=== PATIENT | male | born 1980 | race Caucasian/White ===

== ENCOUNTER 2019-08-29 00:36 | Inpatient (IN) | payer MEDICAID, OTHER ==
--- NOTE | 2019-08-29 01:03 | ED ---
Psych HPI - General Chief Complaint: Psychiatric Symptoms Stated Complaint: Mental Health Time Seen by Provider: 08/29/19 00:50 Source: police, RN notes reviewed, old records reviewed Mode of arrival: ambulatory (PD) Limitations: no limitations - History of Present Illness Initial Comments: This is a 39-year-old male presents today for evaluation, patient's brought in by PD for evaluation regarding any outburst homicidal tendencies and thoughts, per PD patient had angry outbursts was breaking things in his house, patient is refusing to answer questions currently emergency department MD Complaint: altered mental status, other (Anger) -: minutes(s) - Related Data Home Medications Medication Instructions Recorded Confirmed [place] Carbonate 300 mg PO QAM 08/29/19 08/29/19 [place] Carbonate 600 mg PO HS 08/29/19 08/29/19 OLANZapine 20 mg PO HS 08/29/19 08/29/19 Allergies Allergy/AdvReac Type Severity Reaction Status Date / Time No Known Allergies Allergy Verified 08/29/19 00:50 Review of Systems ROS Statement: Those systems with pertinent positive or pertinent negative responses have been documented in the HPI. ROS Other: All systems not noted in ROS Statement are negative. Past Medical History History of Any Multi-Drug Resistant Organisms: None Reported Past Surgical History: No Surgical Hx Reported Past Psychological History: Schizoaffective Disorder, Schizophrenia Smoking Status: Current every day smoker Past Alcohol Use History: Occasional Past Drug Use History: Marijuana General Exam Limitations: no limitations Course Vital Signs 08/29/19 08/29/19 00:43 06:00 Temperature 98 F 98.2 F Pulse Rate 66 95 Respiratory 18 18 Rate Blood Pressure 118/79 121/76 O2 Sat by Pulse 97 98 Oximetry - Reevaluation(s) Reevaluation #1: Medical records reviewed Patient's made medically clear Patient seen in and evaluated by psychiatry Medical Decision Making - Medical Decision Making 39 male DF for evaluation patient has significant psychiatric illness and psychiatric history seen and evaluated psychiatry and will admit for psychiatric admission and treatment - Lab Data Result diagrams: 08/29/19 08:29 08/29/19 08:29 Lab Results 08/29/19 Range/Units 03:25 Urine Opiates Screen Not Detected (NotDetected) Ur Oxycodone Screen Not Detected (NotDetected) Urine Methadone Screen Not Detected (NotDetected) Ur Propoxyphene Screen Not Detected (NotDetected) Ur Barbiturates Screen Not Detected (NotDetected) U Tricyclic Antidepress Not Detected (NotDetected) Ur Phencyclidine Scrn Not Detected (NotDetected) Ur Amphetamines Screen Not Detected (NotDetected) U Methamphetamines Scrn Not Detected (NotDetected) U Benzodiazepines Scrn Not Detected (NotDetected) Urine Cocaine Screen Not Detected (NotDetected) U Marijuana (THC) Screen Detected H (NotDetected) Disposition Clinical Impression: Psychosis, Grief Disposition: TRANSFER TO PSYCH HOSP/UNIT Condition: Fair Is patient prescribed a controlled substance at d/c from ED?: No
[2019-08-29 04:15] LABS: Amphetamine Screen,Urine Not Detected (NotDetected); Barbiturate Screen,Urine Not Detected (NotDetected); Benzodiazepines Screen,Urine Not Detected (NotDetected); Cocaine Screen,Urine Not Detected (NotDetected); Methadone Screen, Urine Not Detected (NotDetected); Opiate Screen,Urine Not Detected (NotDetected); Oxycodone Screen, Urine Not Detected (NotDetected); Phencyclidine Screen,Urine Not Detected (NotDetected); Tricyclic Antidepressant,Urine Not Detected (NotDetected); Urn Cannabinoid Scrn Detected (NotDetected)
[2019-08-29] MEDS ORDERED: LORazepam 1 MG TAB PO PRN (06:14)
[2019-08-29] MEDS ORDERED: MAGNESIUM HYDROXIDE 2,400 MG/10 ML CUP PO PRN (06:14)
[2019-08-29] MEDS ORDERED: ACETAMINOPHEN TAB 325 MG TAB PO PRN (06:14)
[2019-08-29] MEDS ORDERED: MAG HYDROX/AL HYDROX/SIMETH 30 ML CUP PO PRN (06:14)
[2019-08-29] MEDS ORDERED: LORazepam 2 MG/ML INJ IM PRN (06:22)
[2019-08-29] MEDS ORDERED: ZIPRASIDONE 20 MG VIAL IM PRN (09:00)
[2019-08-29 09:03] LABS: Basophils % (A) 0 %; Eosinophils % (A) 0 %; HCT 50.1 % (39.0-53.0); HGB 16.2 gm/dL (13.0-17.5); Lymphocytes % (A) 27 %; MCH 30.8 pg (25.0-35.0); MCHC 32.3 g/dL (31.0-37.0); MCV 95.2 fL (80.0-100.0); Mean Platelet Volume 7.2; Monocytes # (A) 0.4 k/uL (0-1.0); Monocytes % (A) 6 %; Neutrophils # (A) 4.8 k/uL (1.3-7.7); Neutrophils % (A) 65 %; Platelet Count 181 k/uL (150-450); RBC 5.26 m/uL (4.30-5.90); RDW 12.5 % (11.5-15.5); WBC 7.4 k/uL (3.8-10.6)
[2019-08-29] MEDS: LITHIUM CARBONATE 300 MG CAP PO SCH (09:12)
[2019-08-29] MEDS: NICOTINE 21MG/24HR PATCH TRANSDERM SCH (09:12)
[2019-08-29 09:20] LABS: ALT 24 U/L (4-49); AST 30 U/L (17-59); African American GFR (CKD) >90 (>60 ml/min/1.73 sqM); Albumin 4.7 g/dL (3.5-5.0); Alkaline Phosphatase 69 U/L (38-126); Anion Gap 10 mmol/L; Blood Urea Nitrogen 13 mg/dL (9-20); Calcium 9.4 mg/dL (8.4-10.2); Carbon Dioxide 22 mmol/L (22-30); Chloride 108 mmol/L (98-107); Cholesterol 191 mg/dL (<200); Glucose 104 mg/dL (74-99); HDL Cholesterol 38 mg/dL (40-60); LDL Cholesterol,Calculated 128 mg/dL (0-99); Non-African American GFR(CKD) >90 (>60 ml/min/1.73 sqM); Potassium 4.2 mmol/L (3.5-5.1); Sodium 140 mmol/L (137-145); Total Protein 7.4 g/dL (6.3-8.2); Triglycerides 123 mg/dL (<150)
[2019-08-29 10:10] LABS: Lithium <0.2 mmol/L
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
[2019-08-29 18:11] LABS: Hemoglobin A1C 4.8 % (4.0-6.0)
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
[2019-08-29] MEDS ORDERED: OLANZapine 10 MG TAB PO SCH (21:00)
[2019-08-30] MEDS: LITHIUM CARBONATE 300 MG CAP PO SCH ×3 (09:24→20:09)
[2019-08-30] MEDS: NICOTINE 21MG/24HR PATCH TRANSDERM SCH (09:25)
--- NOTE | 2019-08-30 09:26 | P.PN ---
Progress Note - Text Interval history: The patient is found in his room he follows me to an interview room. He reports he slept during the night staff recorded he slept one hour. He indicates he attended groups I will have to confirm that during treatment team meeting. He reports he did not eat breakfast this morning. It appears he did not take medication last evening. I was able to reach his psychiatric nurse practitioner via phone yesterday. She felt that the patient really does best on the lithium and Zyprexa combination and she suspects he was likely noncompliant. We discussed the possible use of an injectable medication and she felt that was not necessary and the patient would likely not compliant with it once in order was . The patient expresses no concerns regarding medication Mental status exam: The patient is alert he seated calmly in the chair he ambulates in the hallway without any signs of ataxia. Eye contact is staring in nature. He initiates no conversation. He provides very simple yes and no type answers. Insight and judgment appear to be poor. He indicates he is not experiencing any symptoms of psychosis but he has not a valid historian. He is reporting no thoughts of harming himself or others. So far there've been no reports of any behavioral disturbance. He is oriented to day the week as Tuesday rather than . He does not recall my name despite our lengthy conversation yesterday. He demonstrates no involuntary repetitive movements. Plan: The patient will continue on the medication prescribed I will switch the Zyprexa to the Zydis form. We will monitor his compliance with medications we are awaiting his deferral conference. Vital signs reviewed. He is encouraged to fully participate in the milieu. We will provide reality orientation when possible.
[2019-08-30] MEDS: OLANZapine ODT 10 MG TAB PO SCH (20:09)
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
[2019-08-31] MEDS: NICOTINE 21MG/24HR PATCH TRANSDERM SCH (09:46)
[2019-08-31] MEDS: LITHIUM CARBONATE 300 MG CAP PO SCH ×2 (09:47→21:58)
[2019-08-31] MEDS: OLANZapine ODT 10 MG TAB PO SCH (21:58)
--- NOTE | 2019-09-01 09:51 | P.PN ---
Progress Note - Text Interval history: The patient's found in his room he follows me to an interview room. Indicates his mood is fine. Staff reported he slept 7 hours, appetite stable. He reports he is attending groups. No reports of any behavioral disturbance. He has no questions or concerns regarding his psychotropic medication. Mental status exam: The patient is alert he is dressed in his own clothing hygiene is adequate eye contact is staring in nature. He initiates no conversation but provides very brief answers to questions asked. He demon strates no tangential thinking loose associations or flight of ideas. He denies experiencing any auditory or visual hallucinations or specific delusions however he has not availed historian. He demonstrates no verbal or physical aggressiveness he demonstrates no involuntary repetitive movements. Insight and judgment are chronically impaired. He reports no suicidal or homicidal ideation. He identifies the day of the week is rather than Tuesday. He is able to recall my name but states that we are at [facility]. Plan: The patient will continue his current medications. We will draw a lithium level soon. We will monitor him for safety and encourage full participation in the milieu. Vital signs reviewed. We will continue to encourage his full participation in the milieu. We will involve his mother in treatment and discharge planning. His disposition is still yet unknown whether he returns home or requires other placement.
[2019-09-01] MEDS: NICOTINE 21MG/24HR PATCH TRANSDERM SCH (11:15)
[2019-09-01] MEDS: LITHIUM CARBONATE 300 MG CAP PO SCH ×2 (11:15→20:19)
[2019-09-01] MEDS: OLANZapine ODT 10 MG TAB PO SCH (20:19)
[2019-09-02] MEDS: NICOTINE 21MG/24HR PATCH TRANSDERM SCH (09:00)
[2019-09-02] MEDS: LITHIUM CARBONATE 300 MG CAP PO SCH ×2 (09:00→21:14)
--- NOTE | 2019-09-02 11:41 | P.PN ---
Progress Note - Text Interval history: The patient's found in the hallway he follows me to an interview room. He continues to report that his mood is fine. He states that his mother visited last evening and that went well. He expects his father will visit this evening. Staff recorded he slept 6 hours. He has been compliant with his medication. We will check a lithium level tomorrow morning. He has no questions or concerns. Mental status exam: The patient is alert he is ambulating in the hallway without any ataxia he is dressed in his own clothing wearing a T-shirt and shorts. Eye contact is staring in nature. He initiates no conversation. He mainly provides very brief answers. When he attempts to provide a longer response it is somewhat mumbling in nature. He reports no suicidal or homicidal ideation intent or plan, he is endorsing no auditory or visual hallucinations. Again he is an impaired historian. Insight and judgment are chronically limited. He demonstrates no verbal or physical aggressiveness he demonstrates no involuntary movements. He is oriented to day the week is Tuesday he does recall my name. Plan: The patient will his current medications. We will obtain a lithium level tomorrow morning. Social work will be asked to confer with the patient's mother to see how visiting went over the weekend. Vital signs reviewed. We will continue to monitor him for safety.
[2019-09-02] MEDS: OLANZapine ODT 10 MG TAB PO SCH (21:14)
[2019-09-03] MEDS: NICOTINE 21MG/24HR PATCH TRANSDERM SCH (10:44)
[2019-09-03] MEDS: LITHIUM CARBONATE 300 MG CAP PO SCH ×2 (10:44→21:13)
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
[2019-09-03] MEDS: OLANZapine ODT 10 MG TAB PO SCH (21:13)
[2019-09-04] MEDS: LITHIUM CARBONATE 300 MG CAP PO SCH ×2 (08:45→21:12)
[2019-09-04] MEDS: NICOTINE 21MG/24HR PATCH TRANSDERM SCH (08:45)
--- NOTE | 2019-09-04 11:20 | P.PN ---
Progress Note - Text Interval history the patient's found in his room he follows me to an interview room. He reports his mood is okay. Staff report that he became agitated and verbally aggressive towards another patient yesterday. The patient made racist comments and required redirection. Social work did make contact with the patient's mother who indicated the patient seemed to still have some disturbing thought content. She continues to feel uncomfortable with him returning to her home. We discussed the possibility of him requiring longterm placement upon discharge. Today the patient indicates that he was involved in some type of disagreement yesterday and he was apologetic. He demonstrates poor insight into that altercation and provides a very nonspecific description. Mental status exam: The patient is an overweight male appearing his stated age is dressed in hospital gowns eye contact is staring in nature. He has no spontaneous speech. Generally he provides a very brief response when pushed for more information he will speak in sentences but often mumbles and he is nonspecific. He reports no suicidal or homicidal ideation intent or plan. Intellectually he is impaired. He demonstrates no verbal or physical aggressiveness during our session. He is reporting no auditory or visual hallucinations. He states that yesterday he did have some paranoid thoughts but could not describe them. Plan: The patient will continue on his current psychotropic medication. We will consider restarting the clozapine. He indicates he would not object to a blood draw. This may be possible to restart if he is in fact going to a longterm upon discharge. We will discuss his case further we will monitor him for safety. He is encouraged to participate in the milieu. He requires continued psychiatric hospitalization.
[2019-09-04] MEDS: OLANZapine ODT 10 MG TAB PO SCH (21:12)
[2019-09-05] MEDS: LITHIUM CARBONATE 300 MG CAP PO SCH ×2 (09:31→21:02)
[2019-09-05] MEDS: NICOTINE 21MG/24HR PATCH TRANSDERM SCH (09:31)
--- NOTE | 2019-09-05 13:27 | P.PN ---
Progress Note - Text Progress Note Date: 09/05/19 Interval history: Patient was seen sitting in the lounge watching TV with another patient and was directable and agreeable to speak with engineering technical writer. Should appear to be calm and directable during the interview. He did not offer any overnight complaints and states that even sleeping well. He states that he isn't taking his medications and offered no complaints with them. He was asking about discharge and when he can be released from the hospital. He was appropriate during conversation. He states that he has been going to some of the groups however did not elaborate much on them. States it is a fair appetite. At this time patient denies any suicidal or homicidal ideations intent or plan. Denies any Auditory or visual hallucinations. Patient denies any side effects from the medications and has been compliant with meds. Mental status exam: General Appearance: Patient appears to be overweight, stated age is alert, directable, and cooperative. Behavior: No agitated behavior. Patient is calm and directable Speech: Patient's speech is fluent and nonpressured. Mood/Affect: Mood is improving mildly, affect is congruent and constricted. Suicidality/Homicidality: Patient denies having any suicidal or homicidal ideation intent or plan. Perceptions: Patient denies any auditory or visual hallucinations. Though content/process: [place], goal oriented and logical. Memory and concentration: AOX3, grossly intact for the purposes of this session Judgment and insight: improving mildly Assessment/Plan: Continue with current diagnosis. Patient continues to meet criteria for inpatient psychiatric admission for symptom stabilization and safety.Patient will be maintained on current psychotropic medication regimen. Monitor for medication compliance and for any psychotropic medication side effects. Will continue to monitor ongoing response to treatment. Encouraged participation in milieu.
[2019-09-05] MEDS: OLANZapine ODT 10 MG TAB PO SCH (21:02)
--- NOTE | 2019-09-06 09:31 | P.PN ---
Progress Note - Text Interval history: The patient is found in his room he follows me to an interview room. He indicates his mood is fine. He indicates his mother visited last evening, he reports that she told him that he will need to go to a skilled nursing for 2 weeks following his discharge from this unit. He indicates this is not a problem. He reports compliance with his medication appetite is stable he feels that he sleeping at night. He has limited participation in groups. Mental status exam: The patient's overweight male appearing his stated age he is dressed in his own clothing wearing a T-shirt and shorts. Hygiene grooming fair. Eye contact is staring in nature speech is nonspontaneous it can be fluent he does mumble at times. He demonstrates no tangential thinking loose associations or flight of ideas. He is reporting no suicidal or homicidal ideation intent or plan. He admits to having feelings of anger previously but reports none today. He is endorsing no auditory or visual hallucinations or any specific delusions. He may have some residual delusional thoughts present that he is underreporting. He demonstrates no verbal or physical aggressiveness. Insight and judgment chronically limited. He demonstrates no involuntary repetitive movements. Plan: The patient will continue on his current psychotropic medication. I will confer with staff during treatment team meeting to see how he has done over the last 2 days. We will monitor for safety and encourage full participation in the milieu. Vital signs reviewed. He requires continued psychiatric hospitalization until clinically stabilized and discharged to an appropriate residence.
[2019-09-06] MEDS: LITHIUM CARBONATE 300 MG CAP PO SCH ×2 (09:34→21:12)
[2019-09-06] MEDS: NICOTINE 21MG/24HR PATCH TRANSDERM SCH (09:34)
[2019-09-06 10:32] VITALS: BMI 30.6
[2019-09-06] MEDS: OLANZapine ODT 10 MG TAB PO SCH (21:12)
[2019-09-07] MEDS: LITHIUM CARBONATE 300 MG CAP PO SCH ×2 (08:49→22:00)
[2019-09-07] MEDS: NICOTINE 21MG/24HR PATCH TRANSDERM SCH (08:49)
--- NOTE | 2019-09-07 11:41 | P.PN ---
Progress Note - Text Interval history: The patient's found in his room he follows me to an interview room. He indicates his mood is fine. Staff report that he has been participating in group. No reports of any behavioral disturbance. He indicates he's been able to sleep appetite is stable. He is aware that he will likely need halfway placement for a few weeks after discharge. Mental status exam: The patient is alert he is dressed in his own clothing hygiene grooming adequate eye contact is staring in nature. He has no spontaneous speech but provides brief answers to questions asked. He demonstrates no verbal or physical aggressiveness he demonstrates no involuntary repetitive movements. Insight and judgment are chronically limited. He reports no suicidal or homicidal ideation intent or plan. He is demonstrating no objective evidence of psychosis at this time. He appears to be chronically intellectually impaired. Plan: The patient will continue on his current psychotropic medication. We are awaiting input from community mental health regarding halfway placement. His mother has indicated she is not comfortable with him returning home. Vital signs reviewed. We will monitor him for safety and encourage full participation in the milieu.
[2019-09-07] MEDS: OLANZapine ODT 10 MG TAB PO SCH (22:00)
[2019-09-08] MEDS: LITHIUM CARBONATE 300 MG CAP PO SCH ×2 (08:51→21:13)
[2019-09-08] MEDS: NICOTINE 21MG/24HR PATCH TRANSDERM SCH (08:51)
--- NOTE | 2019-09-08 11:25 | P.PN ---
Progress Note - Text Progress Note Date: 09/08/19 Interval history: Patient was seen wandering the hallways and was directable and agreeable to s peak with development writer. he appear to be calm and directable during the interview. He did not offer any overnight complaints and states that he slept well last night. He states that he is taking his medications regularly and denies any problems with them he was appropriate during conversation. He states that he has been going to some of the groups however did not elaborate much on them. States it is a fair appetite. He claims that he was supposed to be discharged yesterday however "don't know what happened". At this time patient denies any suicidal or homicidal ideations intent or plan. Denies any Auditory or visual hallucinations. Patient denies any side effects from the medications and has been compliant with meds. Mental status exam: General Appearance: Patient appears to be overweight, stated age is alert, directable, and cooperative. Behavior: No agitated behavior. Patient is calm and directable. [place] Speech: Patient's speech is fluent and nonpressured. Mood/Affect: Mood is improving mildly, affect is congruent and constricted. Suicidality/Homicidality: Patient denies having any suicidal or homicidal ideation intent or plan. Perceptions: Patient denies any auditory or visual hallucinations. Though content/process: [place], goal oriented and logical. Memory and concentration: AOX3, grossly intact for the purposes of this session Judgment and insight: improving mildly Assessment/Plan: Continue with current diagnosis. Patient continues to meet criteria for inpatient psychiatric admission for symptom stabilization and safety.Patient will be maintained on current psychotropic medication regimen. Monitor for medication compliance and for any psychotropic medication side effects. Will continue to monitor ongoing response to treatment. Encouraged participation in milieu.
[2019-09-08] MEDS: OLANZapine ODT 10 MG TAB PO SCH (21:13)
[2019-09-09] MEDS: NICOTINE 21MG/24HR PATCH TRANSDERM SCH (09:03)
[2019-09-09] MEDS: LITHIUM CARBONATE 300 MG CAP PO SCH ×2 (09:03→22:24)
--- NOTE | 2019-09-09 10:45 | P.PN ---
Progress Note - Text Progress Note Date: 09/09/19 Interval history: Patient was seen laying down in his bed this morning and was directable and a greeable to speak with scientific writer. He did not offer any overnight complaints. Patient stated that he he slept well last night and has been taking his medications regularly. Patient was fairly concrete during the encounter. He states that he has been going to some of the groups. States it is a fair appetite. Patient claims that he is looking forward to discharge and will speak more about it tomorrow. At this time patient denies any suicidal or homicidal ideations intent or plan. Denies any Auditory or visual hallucinations. Patient denies any side effects from the medications and has been compliant with meds. Mental status exam: General Appearance: Patient appears to be overweight, stated age is alert, directable, and cooperative. Behavior: No agitated behavior. Patient is calm and directable. [place] Speech: Patient's speech is fluent and nonpressured. Mood/Affect: Mood is improving, affect is congruent and constricted. Suicidality/Homicidality: Patient denies having any suicidal or homicidal ideation intent or plan. Perceptions: Patient denies any auditory or visual hallucinations. Though content/process: [place], goal oriented and logical. Memory and concentration: AOX3, grossly intact for the purposes of this session Judgment and insight: Limited yet is improving mildly Assessment/Plan: Continue with current diagnosis. Patient continues to meet criteria for inpatient psychiatric admission for symptom stabilization and safety.Patient will be maintained on current psychotropic medication regimen. Monitor for medication compliance and for any psychotropic medication side effects. Will continue to monitor ongoing response to treatment. Encouraged participation in milieu.
[2019-09-09] MEDS: OLANZapine ODT 10 MG TAB PO SCH (22:25)
[2019-09-10] MEDS: NICOTINE 21MG/24HR PATCH TRANSDERM SCH (09:01)
[2019-09-10] MEDS: LITHIUM CARBONATE 300 MG CAP PO SCH ×2 (09:01→20:58)
--- NOTE | 2019-09-10 10:55 | P.PN ---
Progress Note - Text Interval history: The patient's found in his room he follows me to an interview room. He indicates his mood is fine. He has no questions or concerns today. Staff report that the patient's mother visited over the weekend. Staff report no behavioral disturbances from the patient over the weekend. He has remained compliant with his psychotropic medication. The patient's mother still requesting long-term placement for 2 weeks after discharge. Mental status exam: The patient's overweight male appearing his stated age. Hygiene and grooming fair. Eye contact is staring in nature. Speech is nonspontaneous but he provides brief responses to questions. He is reporting no thoughts of harming himself or others. He demonstrates no verbal or physical aggressiveness he demonstrates no involuntary repetitive movements. Insight and judgment limited, cognitively he is limited. He reports no auditory or visual hallucinations or any specific delusions. There is no observed evidence of acute psychosis during our interaction. Plan: The patient's will continue on his current psychotropic medications. We will monitor him for safety. He is encouraged to participate in the milieu. Vital signs reviewed. He requires continued psychiatric hospitalization until we determined an appropriate disposition.
[2019-09-10] MEDS: OLANZapine ODT 10 MG TAB PO SCH (20:58)
[2019-09-11] MEDS: LITHIUM CARBONATE 300 MG CAP PO SCH ×2 (09:11→20:34)
[2019-09-11] MEDS: NICOTINE 21MG/24HR PATCH TRANSDERM SCH (09:11)
--- NOTE | 2019-09-11 10:49 | P.PN ---
Progress Note - Text Interval history: The patient is found in his room he follows me to an interview room. He reports no change in his mood. He states that he is still willing to go to a penitentiary upon discharge temporarily. Staff report the patient has been attending groups and has been appropriate. No behavioral disturbance is noted. He has been sleeping at night he has been able to appropriately eat. Social work has been in contact with the patient's mother. Mental status exam: The patient is alert he is an overweight male appearing his stated age. Hygiene grooming adequate. Eye contact is staring in nature. He more readily engages in conversation today he has spontaneous speech. At times his thoughts are disorganized. He is reporting no suicidal or homicidal ideation. He is endorsing no auditory or visual hallucinations or specific delusions. He may have some residual delusional thought still. He demonstrates no verbal or physical aggressiveness he demonstrates no involuntary repetitive movements. Insight and judgment limited, cognitively he's chronically limited. He is oriented to day of the week. Today he asked me who I am, if I'm a doctor and asked me to describe my specialty. Plan: The patient will continue on his current psychotropic medication. We will monitor him for safety and encourage participation in the milieu. We'll monitor for any agitated behavior. Vital signs reviewed. We will continue to work on a safe discharge plan for him. At this time his mother is requesting penitentiary placement. He requires continued psychiatric hospitalization.
[2019-09-11] MEDS: OLANZapine ODT 10 MG TAB PO SCH (20:33)
[2019-09-12 05:42] VITALS: BP 126/80; PULSE 77; RESP 16; TEMP 98.7
[2019-09-12] MEDS: NICOTINE 21MG/24HR PATCH TRANSDERM SCH (08:59)
[2019-09-12] MEDS: LITHIUM CARBONATE 300 MG CAP PO SCH (08:59)
--- NOTE | 2019-09-12 09:18 | P.PN ---
Progress Note - Text Interval history: The patient's found in his room he follows me to an interview room. He indicates his mood is fine. Staff report that he slept throughout the night appetite is stable. He has been participating in groups. He has been compliant with his psychotropic medication. He remains aware that he will be going to a penitentiary upon discharge and offers no objection. Staff report no behavioral disturbances. Mental status exam: The patient is alert he is an overweight male appearing his stated age. He is dressed in his own clothing hygiene grooming adequate. Eye contact is staring in nature. He has no spontaneous speech but it is fluent nonpressured. He offers brief answers to questions. He reports no suicidal ideation intent or plan. He is reporting no auditory or visual hallucinations he is endorsing no specific delusions. He may still have some residual delusional thought however. Insight and judgment chronically limited cognitively he is limited. He demonstrates no verbal or physical aggressiveness he is easily directed. He demonstrates no involuntary repetitive movements. Plan: The patient will continue on his current psychotropic medications. He is encouraged to fully participate in the milieu. Vital signs reviewed they're within normal limits. We are awaiting appropriate placement for him.
--- NOTE | 2019-09-18 11:54 | P.DS ---
Providers Date of admission: 08/29/19 06:01 Expected date of discharge: 09/13/19 Attending physician: Jose Lowe Consults: 08/29/19 10:17 Consult Physician Routine Consulting Provider: Shun Rodríguez Consult Reason/Comments: H&P Do you want consulting provider notified?: Yes Primary care physician: Kris Pedraza - Discharge Diagnosis(es) (1) Psychosis Status: Acute Priority: High (2) Intellectual disability Status: Acute Priority: Medium (3) Cannabis use disorder, mild, abuse Status: Acute Priority: Low Hospital Course: Brief summary of admission note: This patient is a 39-year-old single male who was admitted to the mental health unit through the emergency room after demonstrating significant symptoms of psychosis and agitated behavior. The patient was petition by a police and fire dispatcher. They were called as the patient had demonstrated violent behavior in the home and broke a television. The patient's mother indicated the patient was becoming more psychotic over the last 2 months prior to the admission. For full details please refer to the psychiatric evaluation dated 08/29/2019. Summary of hospital course: The patient was admitted to the mental health unit in voluntarily. A second clinical certificate was completed. I believe he deferred a full court hearing. The patient was restarted on medication. I did speak with his outpatient provider and we decided to continue the Zyprexa and lithium. The patient mainly isolated in his room. He did go down to meals. He has little group participation. He was seen by internal medicine for routine history and physical exam. He was compliant with medication. His symptoms of psychosis seemed to improve during the course of admission. His mother indicated that she felt he required home placements for at least 2 weeks after discharge as part of a transition. That was arranged. Mental status exam: The patient was alert he is an overweight male appearing his stated age. He was dressed in his own clothing hygiene grooming adequate. Eye contact was staring in nature. He had no spontaneous speech but it was fluent and nonpressured. He offered brief answers to questions. He reported no suicidal ideation intent or plan. He reported no hopelessness thinking. He reported no auditory or visual hallucinations or any specific delusions. He reported no command auditory hallucinations. He may have some residual delusional thought. Insight and judgment are chronically limited. He demonstrated no verbal or physical aggressiveness he was easily directable. He demonstrated no involuntary repetitive movements. Impressions 1. Psychosis unspecified, intellectual disability, cannabis use disorder mild, rule out alcohol use disorder Plan: The patient was discharged mental health unit to a jail placement. He was continued on lithium carbonate 300 mg in the morning 600 mg at bedtime, Zyprexa 20 mg at bedtime. His lithium level was 0.7 which was drawn on 09/03/2019. There was no longer any imminent safety risk the patient was appropriate for transition outpatient care. His mother was involved in treatment and discharge planning and was agreeable with the discharge plan. Patient Condition at Discharge: Stable Plan - Discharge Summary New Discharge Prescriptions: No Action [place] Carbonate 300 mg PO QAM OLANZapine 20 mg PO HS [place] Carbonate 600 mg PO HS Discharge Medication List [place] Carbonate 300 mg PO QAM 08/29/19 [History] [place] Carbonate 600 mg PO HS 08/29/19 [History] OLANZapine 20 mg PO HS 08/29/19 [History] Follow up Appointment(s)/Referral(s): [facility] [Outside] - 1 Week (09/13/19 at 130 pm with Wilda Shoemaker for a face to face appt.) Nonstaff,Physician [REFERRING] - 1-2 days Patient Instructions/Handouts: Psychotic Disorder (DC) Activity/Diet/Wound Care/Special Instructions: Activity and diet as tolerated. Avoid the use of street drugs and alcohol. Take all medications as prescribed. When you are in need of refills on your medications please contact your medical provider and/or outpatient psychiatrist to have this done. Please go to scheduled outpatient appointment for aftercare treatment. If symptoms return or become worse, call the crisis line at and/or go to the nearest emergency room for evaluation Discharge Disposition: HOME SELF-CARE
== END 2019-09-12 17:10 | disposition home or self-care (01) | DRG 885 ==
LOC: EC 00:36 → 3MHU 06:01
PROVIDERS: ADMIT Psychiatry & Neurology Psychiatry; ATTEND Psychiatry & Neurology Psychiatry
DX: F29 Unspecified psychosis not due to a substance or known physiological condition (principal); F79 Unspecified intellectual disabilities; E66.3 Overweight; Z91.19 Patient's noncompliance with other medical treatment and regimen; F12.10 Cannabis abuse, uncomplicated; Z68.30 Body mass index [BMI] 30.0-30.9, adult; F17.210 Nicotine dependence, cigarettes, uncomplicated; Z71.6 Tobacco abuse counseling; Z79.899 Other long term (current) drug therapy; Z87.828 Personal history of other (healed) physical injury and trauma; Z71.3 Dietary counseling and surveillance
CPT/HCPCS: 80053; 80061; 80178; 80306; 82075; 83036; 84443; 85025; 99285

== ENCOUNTER 2020-06-09 13:59 | Emergency (ER) | payer OTHER ==
--- NOTE | 2020-06-09 14:13 | ED ---
General Adult HPI - General Stated complaint: Mental Health Time Seen by Provider: 06/09/20 14:00 Source: RN notes reviewed, old records reviewed - History of Present Illness Initial comments: This is a 40-year-old male who presents emergency Department because he has not been taking his medicines for schizophrenia and he was acting out and threatening family members. Patient's parents called the police and EMS picked the patient up. Patient admits to not taking medicines but he denies threatening anybody. Patient denies suicidal ideations. Patient denies any physical complaints today. Patient denies headache patient denies numbness weakness. Patient says pain palpitations difficulty breathing shortness of breath. Patient's abdominal pain patient denies nausea vomiting diarrhea. - Related Data Home Medications Medication Instructions Recorded Confirmed [place] Carbonate 300 mg PO DAILY 08/29/19 06/09/20 [place] Carbonate 600 mg PO HS 08/29/19 06/09/20 OLANZapine [OLANZapine Odt] 20 mg PO HS 06/09/20 06/09/20 Allergies Allergy/AdvReac Type Severity Reaction Status Date / Time No Known Allergies Allergy Verified 06/09/20 16:14 Review of Systems ROS Statement: Those systems with pertinent positive or pertinent negative responses have been documented in the HPI. ROS Other: All systems not noted in ROS Statement are negative. Past Medical History Additional Past Medical History / Comment(s): per mom pt was electrocuted at age 15 and heart stopped twice. Per mom since then patient has had a delay. History of Any Multi-Drug Resistant Organisms: None Reported Past Surgical History: No Surgical Hx Reported Past Psychological History: Schizoaffective Disorder, Schizophrenia Past Alcohol Use History: Occasional Past Drug Use History: Marijuana General Exam - General Exam Comments Initial Comments: GENERAL: Patient is well-developed and well-nourished. Patient is nontoxic and well- hydrated and is in no acute distress ENT: Neck is soft and supple. No significant lymphadenopathy is noted. Oropharynx is clear. Moist mucous membranes. Neck has full range of motion without eliciting any pain. EYES: The sclera were anicteric and conjunctiva were pink and moist. Extraocular movements were intact and pupils were equal round and reactive to light. Eyelids were unremarkable. PULMONARY: Unlabored respirations. Good breath sounds bilaterally. No audible rales rhonchi or wheezing was noted. CARDIOVASCULAR: There is a regular rate and rhythm without any murmurs gallops or rubs. ABDOMEN: Soft and nontender with normal bowel sounds. SKIN: Skin is clear with no lesions or rashes and otherwise unremarkable. NEUROLOGIC: Patient is alert and oriented x3. Cranial nerves II through XII are grossly intact. Motor and sensory are also intact. Normal speech, volume and content. Symmetrical smile. MUSCULOSKELETAL: Normal extremities with adequate strength and full range of motion. LYMPHATICS: No significant lymphadenopathy is noted PSYCHIATRIC: Patient was hostile at his parent's house however he is calm and cooperative here denies any hostility toward anyone he denies any suicidal ideations. Course Vital Signs 06/09/20 14:14 Temperature 98.4 F Pulse Rate 71 Respiratory 16 Rate Blood Pressure 122/80 O2 Sat by Pulse 99 Oximetry Medical Decision Making - Medical Decision Making EPS came down and evaluated the patient and determine the patient to be safely discharged home with a safety plan. Patient was given a safety plan and he was discharged home. EPS told me that the patient was upset earlier because his mother yelled at him and that set him off and so he began yelling back and then felt a conflict began. Mobile crisis agreed that they could follow-up with the patient at the home. Disposition Clinical Impression: Reaction, situational Disposition: HOME SELF-CARE Condition: Good Is patient prescribed a controlled substance at d/c from ED?: No Referrals: Kris Pedraza MD [REFERRING] - 1-2 days Time of Disposition: 16:37
[2020-06-09 14:20] VITALS: BP 122/80; PULSE 71; RESP 16; TEMP 98.4
== END 2020-06-09 21:24 | disposition home or self-care (01) ==
LOC: EC 13:59
DX: F43.0 Acute stress reaction (principal); F12.90 Cannabis use, unspecified, uncomplicated
CPT/HCPCS: 82075; 99284

== ENCOUNTER 2020-09-23 08:20 | Inpatient (IN) | payer MEDICAID, OTHER ==
--- NOTE | 2020-09-23 09:00 | ED ---
Psych HPI - General Chief Complaint: Psychiatric Symptoms Stated Complaint: Mental Health Time Seen by Provider: 09/23/20 08:22 Source: patient, family, EMS, RN notes reviewed Mode of arrival: EMS - History of Present Illness Initial Comments: This is a 40-year-old male with a history of schizoaffective disorder electrocution at the age of 15 since that time he's been slow to answer questions who is brought here today by his mother for evaluation. He will be petition. He apparently has been threatening to his mother he is not been taking his medications because he feels a are not helping him. He denies any fevers chills sweats no cough no other symptoms. He has been refusing blood draw for lab work. This will be done today. Please see the petition Complaint: other - Related Data Home Medications Medication Instructions Recorded Confirmed [place] Carbonate 300 mg PO DAILY 08/29/19 09/23/20 [place] Carbonate 600 mg PO HS 08/29/19 09/23/20 OLANZapine [OLANZapine Odt] 20 mg PO HS 06/09/20 09/23/20 Allergies Allergy/AdvReac Type Severity Reaction Status Date / Time No Known Allergies Allergy Verified 09/23/20 09:19 Review of Systems ROS Statement: Those systems with pertinent positive or pertinent negative responses have been documented in the HPI. ROS Other: All systems not noted in ROS Statement are negative. Past Medical History Past Medical History: No Reported History Additional Past Medical History / Comment(s): per mom pt was electrocuted at age 15 and heart stopped twice. Per mom since then patient has had a delay. History of Any Multi-Drug Resistant Organisms: None Reported Past Surgical History: No Surgical Hx Reported Past Psychological History: Schizoaffective Disorder, Schizophrenia Smoking Status: Current every day smoker Past Alcohol Use History: Occasional Past Drug Use History: Marijuana General Exam - General Exam Comments Initial Comments: This is a well-developed well-nourished awake alert Limitations: altered mental status General appearance: alert, in no apparent distress Head exam: Present: atraumatic, normocephalic, normal inspection Eye exam: Present: normal appearance, PERRL, EOMI. Absent: scleral icterus, conjunctival injection, periorbital swelling ENT exam: Present: normal exam, mucous membranes moist Neck exam: Present: normal inspection. Absent: tenderness, meningismus, lymphadenopathy Respiratory exam: Present: normal lung sounds bilaterally. Absent: respiratory distress, wheezes, rales, rhonchi, stridor Cardiovascular Exam: Present: regular rate, normal rhythm, normal heart sounds. Absent: systolic murmur, diastolic murmur, rubs, gallop, clicks GI/Abdominal exam: Present: soft, normal bowel sounds. Absent: distended, tenderness, guarding, rebound, rigid Extremities exam: Present: normal inspection, full ROM, normal capillary refill. Absent: tenderness, pedal edema, joint swelling, calf tenderness Back exam: Present: normal inspection Neurological exam: Present: alert, oriented X3, CN II-XII intact Psychiatric exam: Present: flat affect Skin exam: Present: warm, dry, intact, normal color. Absent: rash Course Vital Signs 09/23/20 08:23 Temperature 97.9 F Pulse Rate 82 Respiratory 18 Rate Blood Pressure 125/78 O2 Sat by Pulse 96 Oximetry Medical Decision Making - Medical Decision Making The patient was evaluated by the psychiatric service and will voluntarily sign in. I did review the petition. - Lab Data Result diagrams: 09/23/20 09:18 09/23/20 09:18 Lab Results 09/23/20 09/23/20 09/23/20 Range/Units 08:45 09:18 09:18 WBC 6.7 (3.8-10.6) k/uL RBC 4.85 (4.30-5.90) m/uL Hgb 15.3 (13.0-17.5) gm/dL Hct 44.5 (39.0-53.0) % MCV 91.7 (80.0-100.0) fL MCH 31.6 (25.0-35.0) pg MCHC 34.5 (31.0-37.0) g/dL RDW 12.4 (11.5-15.5) % Plt Count 158 (150-450) k/uL MPV 7.7 Neutrophils % 67 % Lymphocytes % 25 % Monocytes % 6 % Eosinophils % 0 % Basophils % 1 % Neutrophils # 4.5 (1.3-7.7) k/uL Lymphocytes # 1.7 (1.0-4.8) k/uL Monocytes # 0.4 (0-1.0) k/uL Eosinophils # 0.0 (0-0.7) k/uL Basophils # 0.0 (0-0.2) k/uL Sodium 142 (137-145) mmol/L Potassium 4.6 (3.5-5.1) mmol/L Chloride 110 H (98-107) mmol/L Carbon Dioxide 24 (22-30) mmol/L Anion Gap 8 mmol/L BUN 18 (9-20) mg/dL Creatinine 1.01 (0.66-1.25) mg/dL Est GFR (CKD-EPI)AfAm >90 (>60 ml/min/1.73 sqM) Est GFR (CKD-EPI)NonAf >90 (>60 ml/min/1.73 sqM) Glucose 105 H (74-99) mg/dL Calcium 9.7 (8.4-10.2) mg/dL Total Bilirubin 0.2 (0.2-1.3) mg/dL AST 24 (17-59) U/L ALT 19 (4-49) U/L Alkaline Phosphatase 68 (38-126) U/L Total Protein 6.6 (6.3-8.2) g/dL Albumin 4.1 (3.5-5.0) g/dL TSH 0.674 (0.465-4.680) mIU/L Urine Opiates Screen Not Detected (NotDetected) Ur Oxycodone Screen Not Detected (NotDetected) Urine Methadone Screen Not Detected (NotDetected) Ur Propoxyphene Screen Not Detected (NotDetected) Ur Barbiturates Screen Not Detected (NotDetected) U Tricyclic Antidepress Not Detected (NotDetected) Ur Phencyclidine Scrn Not Detected (NotDetected) Ur Amphetamines Screen Not Detected (NotDetected) U Methamphetamines Scrn Not Detected (NotDetected) U Benzodiazepines Scrn Not Detected (NotDetected) Sultan 0.4 mmol/L Urine Cocaine Screen Not Detected (NotDetected) U Marijuana (THC) Screen Detected H (NotDetected) Disposition Clinical Impression: Acute psychosis Disposition: TRANSFER TO PSYCH HOSP/UNIT Condition: Stable Referrals: Howard Sellers DO [Primary Care Provider] - 1-2 days
[2020-09-23 09:28] LABS: Amphetamine Screen,Urine Not Detected (NotDetected); Benzodiazepines Screen,Urine Not Detected (NotDetected); Cocaine Screen,Urine Not Detected (NotDetected); Opiate Screen,Urine Not Detected (NotDetected); Phencyclidine Screen,Urine Not Detected (NotDetected); Tricyclic Antidepressant,Urine Not Detected (NotDetected); Urn Cannabinoid Scrn Detected (NotDetected)
[2020-09-23 09:29] LABS: Barbiturate Screen,Urine Not Detected (NotDetected); Methadone Screen, Urine Not Detected (NotDetected); Oxycodone Screen, Urine Not Detected (NotDetected)
[2020-09-23 10:02] LABS: ALT 19 U/L (4-49); AST 24 U/L (17-59); African American GFR (CKD) >90 (>60 ml/min/1.73 sqM); Albumin 4.1 g/dL (3.5-5.0); Alkaline Phosphatase 68 U/L (38-126); Anion Gap 8 mmol/L; Blood Urea Nitrogen 18 mg/dL (9-20); Calcium 9.7 mg/dL (8.4-10.2); Carbon Dioxide 24 mmol/L (22-30); Chloride 110 mmol/L (98-107); Glucose 105 mg/dL (74-99); Lithium 0.4 mmol/L; Non-African American GFR(CKD) >90 (>60 ml/min/1.73 sqM); Potassium 4.6 mmol/L (3.5-5.1); Sodium 142 mmol/L (137-145); Total Bilirubin 0.2 mg/dL (0.2-1.3); Total Protein 6.6 g/dL (6.3-8.2)
[2020-09-23 10:08] LABS: Basophils % (A) 1 %; Eosinophils % (A) 0 %; HCT 44.5 % (39.0-53.0); HGB 15.3 gm/dL (13.0-17.5); Lymphocytes # (A) 1.7 k/uL (1.0-4.8); Lymphocytes % (A) 25 %; MCH 31.6 pg (25.0-35.0); MCHC 34.5 g/dL (31.0-37.0); MCV 91.7 fL (80.0-100.0); Mean Platelet Volume 7.7; Monocytes # (A) 0.4 k/uL (0-1.0); Monocytes % (A) 6 %; Neutrophils # (A) 4.5 k/uL (1.3-7.7); Neutrophils % (A) 67 %; Platelet Count 158 k/uL (150-450); RBC 4.85 m/uL (4.30-5.90); RDW 12.4 % (11.5-15.5); WBC 6.7 k/uL (3.8-10.6)
[2020-09-23] MEDS ORDERED: MAGNESIUM HYDROXIDE 2,400 MG/10 ML CUP PO PRN (12:21)
[2020-09-23] MEDS ORDERED: MAG HYDROX/AL HYDROX/SIMETH 30 ML CUP PO PRN (12:21)
[2020-09-23] MEDS ORDERED: ACETAMINOPHEN TAB 325 MG TAB PO PRN (12:21)
[2020-09-23] MEDS ORDERED: LORazepam 1 MG TAB PO PRN (12:21)
[2020-09-23] MEDS ORDERED: haloperidoL 5 MG TAB PO PRN (12:26)
[2020-09-23] MEDS ORDERED: LORazepam 2 MG/ML INJ IM PRN (12:27)
[2020-09-23] MEDS: LITHIUM CARBONATE 300 MG CAP PO SCH ×2 (14:06→20:24)
[2020-09-23 18:20] LABS: Chol/HDL Ratio 5.25; Cholesterol 168 mg/dL (0-200); LDL Cholesterol,Calculated 117.6 mg/dL (0.0-131.0)
[2020-09-23 18:31] LABS: Hemoglobin A1C 4.8 % (4.0-6.0)
[2020-09-23] MEDS ORDERED: OLANZapine 10 MG TAB PO SCH (21:00)
--- NOTE | 2020-09-24 02:44 | P.MDCNMH ---
History of Present Illness H&P Date: 09/23/20 Chief Complaint: Medical evaluation 40-year-old male with bipolar disorder depression and schizophrenia called the police petitioned the patient for bizarre behavior and noncompliance of medications Patient denies currently any suicidal ideation denies any hallucinations. He denies any medical concerns denies any fevers chills trouble breathing coughing shortness of breath nausea vomiting abdominal pain He denies any heavy alcohol consumption he admits to occasional marijuana and tobacco smoking Review of Systems Pertinent positives as noted in HPI. All other systems were reviewed and are negative Past Medical History Past Medical History: No Reported History Additional Past Medical History / Comment(s): per mom pt was electrocuted at age 15 and heart stopped twice. Per mom since then patient has had a delay. History of Any Multi-Drug Resistant Organisms: None Reported Past Surgical History: No Surgical Hx Reported Past Psychological History: Schizoaffective Disorder, Schizophrenia Smoking Status: Current every day smoker Past Alcohol Use History: Rare Past Drug Use History: Marijuana Medications and Allergies Home Medications Medication Instructions Recorded Confirmed Type [employer] Carbonate 300 mg PO DAILY 08/29/19 09/23/20 History [employer] Carbonate 600 mg PO HS 08/29/19 09/23/20 History OLANZapine [OLANZapine Odt] 20 mg PO HS 06/09/20 09/23/20 History Allergies Allergy/AdvReac Type Severity Reaction Status Date / Time No Known Allergies Allergy Verified 09/23/20 09:19 Physical Exam Vitals: Vital Signs Temp Pulse Pulse Resp BP BP Pulse Ox 09/23/20 13:22 99.2 F 65 16 127/75 97 09/23/20 08:23 97.9 F 82 18 125/78 96 Intake and Output 09/23/20 09/23/20 09/24/20 14:59 22:59 06:59 Other: Weight 113.8 kg Constitutional: No acute distress, conversant, pleasant Eyes: Anicteric sclerae, moist conjunctiva, Pupils equal round reactive to light ENMT: NC/AT Oropharynx clear, no erythema, or exudates Neck: Supple, FROM, no masses, or JVD No carotid bruits No thyromegaly Lungs: Good breath sounds bilaterally, there is end expiratory wheezing Clear to percussion Normal respiratory effort, no accessory muscle use Cardiovascular: Heart regular in rate and rhythm, No murmurs, gallops, or rubs No peripheral edema Abdominal: Soft Nontender, no guarding, rebound or rigidity Abdomen moving with respiration Normoactive bowel sounds No hepatomegaly, No splenomegaly No palpable mass No abdominal wall hernia noted Skin: Normal temperature, tone, texture, turgor No induration No subcutaneous nodules No rash, lesions No ulcers Extremities: No digital cyanosis No clubbing Pedal pulses intact and symmetrical Radial pulses intact and symmetrical No calf tenderness Psychiatric: Alert and oriented to person, place and time Neuro Muscles Strength 5/5 in all 4 extremities Sensation to light touch grossly present throughout Cranial nerves II-XII grossly intact No focal sensory deficits Lymphatics: no palpable cervical or supraclavicular , or inguinal lymph nodes Cranial Nerve Examination - Cranial Nerves Cranial Nerve II- Optic: Intact Cranial Nerve III- Oculomotor: Intact Cranial Nerve IV- Trochlear: Intact Cranial Nerve V- Trigeminal: Intact Cranial Nerve - Abducens: Intact Cranial Nerve VII- Facial: Intact Cranial Nerve VIII- Auditory: Intact Cranial Nerve IX- Glossopharyngeal: Intact Cranial Nerve X- Vagus: Intact Cranial Nerve XI- Accessory: Intact Cranial Nerve XII- Hypoglossal: Intact Results CBC & Chem 7: 09/23/20 09:18 09/23/20 09:18 Labs: Abnormal Lab Results - Last 24 Hours (Table) 09/23/20 09/23/20 Range/Units 08:45 09:18 Chloride 110 H (98-107) mmol/L Glucose 105 H (74-99) mg/dL HDL Cholesterol 32.0 L (40.0-60.0) mg/dL U Marijuana (THC) Screen Detected H (NotDetected) Assessment and Plan Assessment: Acute psychosis History of schizophrenia I pole of depression Management per psych And expiratory wheezing No history of asthma or COPD Offer DuoNeb's when necessary as needed for shortness of breath Labs reviewed Thank you for allowing us to participate in the care of this patient. We will follow peripherally. Do not hesitate to contact us with questions. Someone can be reached from the [facility] hospitalist group at all hours of the day at [phone].
[2020-09-24] MEDS ORDERED: IPRATROPIUM-ALBUTEROL 3 ML NEB INHALATION PRN (02:46)
[2020-09-24 08:07] LABS: Basophils # (A) 0.1 k/uL (0-0.2); Basophils % (A) 1 %; Eosinophils % (A) 0 %; HCT 48.9 % (39.0-53.0); HGB 16.2 gm/dL (13.0-17.5); Lymphocytes # (A) 2.3 k/uL (1.0-4.8); Lymphocytes % (A) 30 %; MCH 31.3 pg (25.0-35.0); MCHC 33.1 g/dL (31.0-37.0); MCV 94.4 fL (80.0-100.0); Mean Platelet Volume 7.5; Monocytes # (A) 0.4 k/uL (0-1.0); Monocytes % (A) 5 %; Neutrophils # (A) 4.8 k/uL (1.3-7.7); Neutrophils % (A) 62 %; Platelet Count 179 k/uL (150-450); RBC 5.18 m/uL (4.30-5.90); WBC 7.7 k/uL (3.8-10.6)
[2020-09-24] MEDS: NICOTINE 14MG/24HR PATCH TRANSDERM SCH (08:19)
[2020-09-24] MEDS: LITHIUM CARBONATE 300 MG CAP PO SCH ×2 (08:19→20:43)
--- NOTE | 2020-09-24 11:39 | P.CN ---
Psychiatric Consult - . Consult date: 09/24/20 Consult:: 09/24/20 11:21 IDENTIFYING DATA: Patient is a 40-year-old male who currently lives with his mother and brother in a house. He has no kids and is unmarried and is unemployed. HPI: Patient presented to the hospital as he was brought in by his mother on a petition for aggression and making threats of suicide and homicide. Patient apparently has not been taking his psychiatric medications at home including lithium and olanzapine. Patient's UDS was positive for marijuana. Patient's lithium level was 0.4. Patient was seen today by verse writer in his room and agreeable to speak to verse writer in the office. Patient states that he "couldn't take it anymore" and was fairly vague and concrete. He repeated "I don't know" to several questions about the circumstances of him coming to the hospital. He states that "my mother always gets her way". He has very poor insight into his condition and need for treatment. He was fairly tearful when talking about his medications and his mental health. He was difficult to comprehend. He claims that his mood is "okay" and has an incongruent affect. He denied everything on the petition. He had poor eye contact and was looking at the ground during most of the interview. He states his sleep has been fair and appetite is been fair. Patient denies any suicidal or homicidal ideations intent or plan. At this time patient denies any auditory or visual hallucinations. Patient denies any flight of ideas racing thoughts and increased in goal directed behavior. Patient admits to using cigarettes daily and marijuana. PAST PSYCHIATRIC HISTORY: Patient has a history of schizophrenia and intellectual disability. Patient was on lithium and olanzapine and is currently being followed by a nurse practitioner at [facility]. Patient was last psychiatrically hospitalized in August 2019. Patient denies any history of suicide attempts in the past. PMH: Obesity ALLERGIES: as per EMR CHEMICAL DEPENDENCY HISTORY: as per HPI FAMILY PSYCHIATRIC/SUBSTANCE USE HISTORY: denies SOCIAL HISTORY: Patient was born and raised in [place], [place]. He claims that he dropped out of school in the ninth grade and then came back to complete his high school degree. He states that he is unemployed at this time. He denies any legal history. He claims that he lives with his brother and mother in a house.. MENTAL STATUS EXAM: General Appearance: Patient appears to be overweight, stated age is alert, directable, and vague/guarded. Patient appears to have poor hygiene and grooming. Poor eye contact Behavior: Patient is seated without any agitated behavior. tearful at times Speech: Patient's speech is difficult to comprehend. [place] Mood/Affect: Patient reports their mood is ok, affect is incongruent Suicidality/Homicidality: Patient denies having any homicidal ideation intent or plan. Denies any suicidal ideations intent or plan Perceptions: Patient denies any visual hallucinations and denies any auditory hallucinations Though content/process: [place], poverty of content. Thought endorsing any delusions. Memory and concentration: AOX1-2, fair attention span. Cannot spell "WORLD" backwards Judgment and insight: poor STRENGTHS/WEAKNESSES: strength is that patient is resilient. Weakness is that patient has poor judgment and is impulsive INTELLECT: average IMPRESSIONS: Schizophrenia Intellectual disability Cannabis use disorder Nicotine dependence PLAN: -Patient is admitted under voluntary status to MHU for stabilization of psychiatric symptoms and safety. Patient has signed adult voluntary form and medication consent and is placed in patient's chart. -Medications : Will start patient on paliperidone by mouth 3 mg daily at bedtime for mood stabilization/psychosis. Plan will be to transition patient onto a long-acting injection. Continue with lithium 600 mg daily at bedtime +300 mg daily for mood stabilization. -Ativan and Haldol PRN for agitation/aggression -Patient was informed of the risks, benefits and side effects of the medication and patient verbally consented to taking the medications. Patient signed med consent form and was placed in chart. -Internal Medicine consult to perform medical evaluation and physical. -NRT - nicotine patch -SW on board for discharge planning. Encourage patient to participate in groups to work on coping skills.
[2020-09-24 16:48] LABS: Urine Alcohol Negative (Negative); Urine Barbiturate Negative (Negative); Urine Cocaine Negative (Negative); Urine Methadone Negative (Negative); Urine Opiates Negative (Negative); Urine Phencyclidine Negative (Negative)
[2020-09-24] MEDS: PALIPERIDONE 3 MG TAB.ER.24 PO SCH (20:43)
[2020-09-25] MEDS: LITHIUM CARBONATE 300 MG CAP PO SCH ×2 (08:25→21:11)
[2020-09-25] MEDS: NICOTINE 14MG/24HR PATCH TRANSDERM SCH (08:25)
--- NOTE | 2020-09-25 11:39 | P.PN ---
Progress Note - Text Progress Note Date: 09/25/20 Interval History: Patient was seen lying in bed this morning and was directable and agreeable to speak with freelance copywriter in the office. He appears to be more awake and more interactive with freelance copywriter today. He was fairly calm while talking however continues to be concrete and have poverty of content. She continues to show limited insight into his condition and freelance copywriter spoke to him about his medications and he agreed to continue taking them. Research And Evaluation Analyst also spoke with patient about the option for long-acting injection and patient declined today and wants to take pills instead. He claims that he has not talked to his mom since being in the hospital however we'll attempt to do so today. He states that he did go to a couple of groups yesterday however did not explain what he was learning in them. He said he slept approximately 6-7 hours last night. At this time patient denies any suicidal or homical ideations, intent or plan. Patient denies any auditory, visual hallucinations and denies any paranoia or delusions. Patient denies any side effects from the medications and has been compliant with meds. Mental Status Exam: General Appearance: Patient appears to be overweight, stated age is alert, directable, and attempts to be cooperative. Behavior: Patient is calmly seated without any agitated behavior. Constricted Speech: Patient's speech is fluent and nonpressured. [place] Mood/Affect: Mood is improving mildly, affect is congruent and constricted. Suicidality/Homicidality: Patient denies having any suicidal or homicidal ideation intent or plan. Perceptions: Patient denies any visual hallucinations and denies any auditory hallucinations Though content/process: [place], poverty of content. Logical. Memory and concentration: AOX3, grossly intact for the purposes of this session Judgment and insight: Chronically poor, Improving mildly Assessment Schizophrenia Intellectual disability Cannabis use disorder Nicotine dependence Plan: -Patient continues to meet criteria for inpatient psychiatric admission for symptom stabilization and safety. Patient has signed adult voluntary form and medication consent and was placed in patient's chart. -Medications: Continue with paliperidone by mouth 3 mg daily at bedtime for mood stabilization/psychosis. Plan to increase to 6 mg over the weekend. We'll continue to encourage long-acting injection to ensure compliance. Continue with lithium 600 mg daily at bedtime +300 mg daily for mood stabilization. check lithium level on tuesday morning. -When necessary Ativan and Haldol for agitation/aggression. -NRT - nicotine patch -SW on board for discharge planning. Encouraged the patient to participate in milieu. Likely discharge early next week and hopefully will attempt to transition patient onto long-acting injection prior to discharge to ensure compliance. mental health worker to contact patient's mother to see if patient is still able to be discharged back home.
[2020-09-25] MEDS: PALIPERIDONE 3 MG TAB.ER.24 PO SCH (21:11)
[2020-09-26] MEDS: NICOTINE 14MG/24HR PATCH TRANSDERM SCH (08:51)
[2020-09-26] MEDS: LITHIUM CARBONATE 300 MG CAP PO SCH ×2 (08:51→21:07)
--- NOTE | 2020-09-26 09:36 | P.PN ---
Progress Note - Text Progress Note Date: 09/26/20 Interval History: Patient was seen wandering the hallways this morning and was directable and ag reeable to speak with board writer in the office. He appears to be more awake and more interactive with board writer today. He was fairly calm while talking the board writer today. He continues to be fairly concrete in his thought process and speech. He states that he spoke briefly with his mother yesterday when she came to drop off closer him. He states that he still does not know if he is welcome back home to stay with her. He states that he has been trying to go to groups and has been taking his medications. He claims that he is feeling better on the medications at this time. He states that he is not feeling depressed or anxious today. He claims he is able to sleep approximately 5-6 hours last night. he continues to show limited insight into his condition however states that he is agreeable to take the long-acting injection to ensure compliance and will be taking it tomorrow. At this time patient denies any suicidal or homical ideations, intent or plan. Patient denies any auditory, visual hallucinations and denies any paranoia or delusions. Patient denies any side effects from the medications and has been compliant with meds. Mental Status Exam: General Appearance: Patient appears to be overweight, stated age is alert, directable, and attempts to be cooperative. Behavior: Patient is calmly seated without any agitated behavior. Constricted Speech: Patient's speech is fluent and nonpressured. [place] Mood/Affect: Mood is improving mildly, affect is congruent Suicidality/Homicidality: Patient denies having any suicidal or homicidal ideation intent or plan. Perceptions: Patient denies any visual hallucinations and denies any auditory hallucinations Though content/process: concrete, poverty of content. Logical. Memory and concentration: AOX3, grossly intact for the purposes of this session Judgment and insight: Chronically poor, Improving mildly Assessment Schizophrenia Intellectual disability Cannabis use disorder Nicotine dependence Plan: -Patient continues to meet criteria for inpatient psychiatric admission for symptom stabilization and safety. Patient has signed adult voluntary form and medication consent and was placed in patient's chart. -Medications: Continue with paliperidone by mouth 3 mg daily at bedtime for mood stabilization/psychosis which is to d/c on tuesday. PAtient is agreeable to take Invega sustenna tomorrow loading dose. Continue with lithium 600 mg daily at bedtime +300 mg daily for mood stabilization. check lithium level on tuesday morning. -When necessary Ativan and Haldol for agitation/aggression. -NRT - nicotine patch -SW on board for discharge planning. Encouraged the patient to participate in milieu. emergency service worker to contact patient's mother to see if patient is still able to be discharged back home. likely discharge tuesday.
[2020-09-26] MEDS: PALIPERIDONE 3 MG TAB.ER.24 PO SCH (21:06)
[2020-09-27] MEDS: LITHIUM CARBONATE 300 MG CAP PO SCH ×2 (08:37→21:22)
[2020-09-27] MEDS: NICOTINE 14MG/24HR PATCH TRANSDERM SCH (08:38)
[2020-09-27] MEDS ORDERED: PALIPERIDONE IM 234 MG/1.5 ML SYG IM ONE (10:00)
--- NOTE | 2020-09-27 13:54 | P.PN ---
Subjective Progress Note Date: 09/27/20 Principal diagnosis: Interval History: Patient was seen wandering the hallways and was directable and agreeable to speak with financial writer in the office. According to the patient's record he was admitted due to increased agitation with suicidal and homicidal ideations. Currently he is being treated for schizophrenia. He indicated tolerating and responding favorably to his current medication regimen. Patient received Invega sustained this afternoon. He is also on oral palpiridone and lithium. Patient reported his mood is stable. Denies having hallucinations or delusions. He states that he slept 10 hours last night. At this time patient denies any suicidal or homical ideations, intent or plan. Patient denies any side effects from the medications and has been compliant with meds. Mental Status Exam: General Appearance: Patient is overweight. Has fair hygiene. Uncooperative Behavior: Patient is calmly seated without any agitated behavior. Speech: Patient's speech is fluent and slow Mood/Affect: Mood is improving mildly, affect is congruent and constricted. Suicidality/Homicidality: Patient denies having any suicidal or homicidal ideation intent or plan. Perceptions: Patient denies any visual hallucinations and denies any auditory hallucinations Though content/process: [place] Memory and concentration: AOX3, grossly intact for the purposes of this session Judgment and insight: Improving mildly Assessment Schizophrenia Intellectual disability Cannabis use disorder He continues to sort Plan: -Patient continues to meet criteria for inpatient psychiatric admission for symptom stabilization and safety. Patient has not signed adult voluntary form and medication consent and was placed in patient's chart. -Medications: Continue paliperidone 3 mg PO nightly with the plan to discontinue tomorrow 09/28/2020. As mentioned in HPI he received paliperidone Sustained 234 mg IM today. Continue lithium 300 mg daily and 600 mg nightly for mood stabili zation. Patient to schedule for blood work to check his lithium level tomorrow . It should be noted his vitals and blood work results review -When necessary Ativan and Haldol for agitation/aggression. -NRT - nicotine patch -SW on board for discharge planning. Encouraged the patient to participate in milieu. Objective - Vital Signs Vital signs: Vital Signs Temp 96.3 F L 09/27/20 06:40 Pulse 77 09/27/20 06:40 Resp 16 09/27/20 06:40 BP 129/82 09/27/20 06:40 Pulse Ox 97 09/23/20 13:22 - Labs CBC & Chem 7: 09/24/20 06:54 09/23/20 09:18
[2020-09-27] MEDS: PALIPERIDONE 3 MG TAB.ER.24 PO SCH (21:22)
[2020-09-28 06:38] VITALS: RESP 18
[2020-09-28] MEDS: LITHIUM CARBONATE 300 MG CAP PO SCH ×2 (08:30→20:51)
[2020-09-28] MEDS: NICOTINE 14MG/24HR PATCH TRANSDERM SCH (08:30)
--- NOTE | 2020-09-28 15:44 | P.PN ---
Progress Note - Text Progress Note Date: 09/28/20 Interval History: Patient was seen wandering the hallways and was directable and agreeable to sp vikash with race and sports book writer in the office. According to the patient's record he was admitted due to increased agitation with suicidal and homicidal ideations. Currently he is being treated for schizophrenia. He indicated tolerating and responding favorably to his current medication regimen. Patient states that he slept well last night. Patient states that he talked to one of his sisters. Patient states his plan is to stay with his parents after being discharged. Patient received Invega sustained this afternoon. Patient reported his mood is stable. Denies having hallucinations or delusions. He states that he slept 10 hours last night. At this time patient denies any suicidal or homical ideations, intent or plan. Patient denies any side effects from the medications and has been compliant with meds. Mental Status Exam: General Appearance: Patient is overweight. Has fair hygiene. Uncooperative Behavior: Patient is calmly seated without any agitated behavior. Speech: Patient's speech is fluent and slow Mood/Affect: Mood is improving mildly, affect is congruent and constricted. Suicidality/Homicidality: Patient denies having any suicidal or homicidal ideation intent or plan. Perceptions: Patient denies any visual hallucinations and denies any auditory hallucinations Though content/process: [place] Memory and concentration: AOX3, grossly intact for the purposes of this session Judgment and insight: Improving mildly Assessment Schizophrenia Intellectual disability Cannabis use disorder He continues to sort Plan: -Patient continues to meet criteria for inpatient psychiatric admission for symptom stabilization and safety. Patient has not signed adult voluntary form and medication consent and was placed in patient's chart. -Medications: discontniue oral paliperidone . Should be noted the patient received paliperidone Sustained 234 mg IM 09/27/2020. Continue lithium 300 mg daily and 600 mg nightly for mood stabilization. Patient is schedule for blood work to check his lithium level, CMP, CBC and TSH tomorrow Am. -When necessary Ativan and Haldol for agitation/aggression. -NRT - nicotine patch -SW on board for discharge planning. Encouraged the patient to participate in milieu.
[2020-09-29 06:47] VITALS: BP 121/64; PULSE 82; TEMP 96.4
[2020-09-29 06:52] LABS: Basophils % (A) 0 %; Eosinophils % (A) 0 %; HGB 15.8 gm/dL (13.0-17.5); Lymphocytes # (A) 2.5 k/uL (1.0-4.8); Lymphocytes % (A) 30 %; MCH 31.5 pg (25.0-35.0); MCHC 34.3 g/dL (31.0-37.0); Mean Platelet Volume 7.6; Monocytes # (A) 0.5 k/uL (0-1.0); Monocytes % (A) 6 %; Neutrophils # (A) 5.1 k/uL (1.3-7.7); Neutrophils % (A) 61 %; Platelet Count 168 k/uL (150-450); RDW 12.4 % (11.5-15.5); WBC 8.3 k/uL (3.8-10.6)
[2020-09-29 07:14] LABS: ALT 27 U/L (4-49); AST 31 U/L (17-59); African American GFR (CKD) >90 (>60 ml/min/1.73 sqM); Albumin 4.5 g/dL (3.5-5.0); Alkaline Phosphatase 73 U/L (38-126); Anion Gap 8 mmol/L; Blood Urea Nitrogen 17 mg/dL (9-20); Carbon Dioxide 23 mmol/L (22-30); Chloride 109 mmol/L (98-107); Glucose 103 mg/dL (74-99); Non-African American GFR(CKD) >90 (>60 ml/min/1.73 sqM); Potassium 4.5 mmol/L (3.5-5.1); Sodium 140 mmol/L (137-145); Total Bilirubin 0.7 mg/dL (0.2-1.3); Total Protein 6.9 g/dL (6.3-8.2)
[2020-09-29 08:05] LABS: Lithium 0.7 mmol/L
[2020-09-29] MEDS: LITHIUM CARBONATE 300 MG CAP PO SCH (08:16)
[2020-09-29] MEDS: NICOTINE 14MG/24HR PATCH TRANSDERM SCH (08:19)
--- NOTE | 2020-09-29 10:32 | P.HP ---
Psychiatric H&P - . H&P Date: 09/24/20 History & Physical: Allergies Allergy/AdvReac Type Severity Reaction Status Date / Time No Known Allergies Allergy Verified 09/23/20 09:19 Vital Signs Temp 96.4 F L 09/29/20 06:47 Pulse 82 09/29/20 06:47 Resp 18 09/29/20 06:47 BP 121/64 09/29/20 06:47 Pulse Ox 97 09/23/20 13:22 Intake & Output 09/28/20 09/29/20 09/29/20 18:59 06:59 18:59 Weight 110.6 kg Laboratory Last Values WBC 8.3 k/uL (3.8-10.6) 09/29/20 06:36 RBC 5.00 m/uL (4.30-5.90) 09/29/20 06:36 Hgb 15.8 gm/dL (13.0-17.5) 09/29/20 06:36 Hct 46.0 % (39.0-53.0) 09/29/20 06:36 MCV 92.0 fL (80.0-100.0) 09/29/20 06:36 MCH 31.5 pg (25.0-35.0) 09/29/20 06:36 MCHC 34.3 g/dL (31.0-37.0) 09/29/20 06:36 RDW 12.4 % (11.5-15.5) 09/29/20 06:36 Plt Count 168 k/uL (150-450) 09/29/20 06:36 MPV 7.6 09/29/20 06:36 Neutrophils % 61 % 09/29/20 06:36 Lymphocytes % 30 % 09/29/20 06:36 Monocytes % 6 % 09/29/20 06:36 Eosinophils % 0 % 09/29/20 06:36 Basophils % 0 % 09/29/20 06:36 Neutrophils # 5.1 k/uL (1.3-7.7) 09/29/20 06:36 Lymphocytes # 2.5 k/uL (1.0-4.8) 09/29/20 06:36 Monocytes # 0.5 k/uL (0-1.0) 09/29/20 06:36 Eosinophils # 0.0 k/uL (0-0.7) 09/29/20 06:36 Basophils # 0.0 k/uL (0-0.2) 09/29/20 06:36 Sodium 140 mmol/L (137-145) 09/29/20 06:36 Potassium 4.5 mmol/L (3.5-5.1) 09/29/20 06:36 Chloride 109 mmol/L (98-107) H 09/29/20 06:36 Carbon Dioxide 23 mmol/L (22-30) 09/29/20 06:36 Anion Gap 8 mmol/L 09/29/20 06:36 BUN 17 mg/dL (9-20) 09/29/20 06:36 Creatinine 0.90 mg/dL (0.66-1.25) 09/29/20 06:36 Est GFR (CKD-EPI)AfAm >90 (>60 ml/min/1.73 sqM) 09/29/20 06:36 Est GFR (CKD-EPI)NonAf >90 (>60 ml/min/1.73 sqM) 09/29/20 06:36 Glucose 103 mg/dL (74-99) H 09/29/20 06:[address] Glu mg/dL 91 09/23/20 09:18 Hemoglobin A1c 4.8 % (4.0-6.0) 09/23/20 09:18 Calcium 10.0 mg/dL (8.4-10.2) 09/29/20 06:36 Total Bilirubin 0.7 mg/dL (0.2-1.3) 09/29/20 06:36 AST 31 U/L (17-59) 09/29/20 06:36 ALT 27 U/L (4-49) 09/29/20 06:36 Alkaline Phosphatase 73 U/L (38-126) 09/29/20 06:36 Total Protein 6.9 g/dL (6.3-8.2) 09/29/20 06:36 Albumin 4.5 g/dL (3.5-5.0) 09/29/20 06:36 Triglycerides 92.0 mg/dL (0.0-149.0) 09/23/20 09:18 Cholesterol 168 mg/dL (0-200) 09/23/20 09:18 LDL Cholesterol, Calc 117.6 mg/dL (0.0-131.0) 09/23/20 09:18 VLDL Cholesterol, Calc 18.40 mg/dL (5.00-40.00) 09/23/20 09:18 HDL Cholesterol 32.0 mg/dL (40.0-60.0) L 09/23/20 09:18 Cholesterol/HDL Ratio 5.25 09/23/20 09:18 TSH 1.670 mIU/L (0.465-4.680) 09/29/20 06:36 Urine Opiates Screen Negative ng/mL (Negative) 09/23/20 08:45 Urine Opiates Screen Not Detected (NotDetected) 09/23/20 08:45 Ur Oxycodone Screen Not Detected (NotDetected) 09/23/20 08:45 Urine Methadone Screen Negative ng/mL (Negative) 09/23/20 08:45 Urine Methadone Screen Not Detected (NotDetected) 09/23/20 08:45 Ur Propoxyphene Screen Negative ng/mL (Negative) 09/23/20 08:45 Ur Propoxyphene Screen Not Detected (NotDetected) 09/23/20 08:45 Ur Barbiturates Screen Not Detected (NotDetected) 09/23/20 08:45 Urine Barbiturates Negative ng/mL (Negative) 09/23/20 08:45 U Tricyclic Antidepress Not Detected (NotDetected) 09/23/20 08:45 Ur Phencyclidine Scrn Negative ng/mL (Negative) 09/23/20 08:45 Ur Phencyclidine Scrn Not Detected (NotDetected) 09/23/20 08:45 Ur Amphetamine Screen Negative ng/mL (Negative) 09/23/20 08:45 Ur Amphetamines Screen Not Detected (NotDetected) 09/23/20 08:45 U Methamphetamines Scrn Not Detected (NotDetected) 09/23/20 08:45 U Benzodiazepines Scrn Negative ng/mL (Negative) 09/23/20 08:45 U Benzodiazepines Scrn Not Detected (NotDetected) 09/23/20 08:45 [place] 0.7 mmol/L 09/29/20 06:36 Urine Cocaine Screen Negative ng/mL (Negative) 09/23/20 08:45 Urine Cocaine Screen Not Detected (NotDetected) 09/23/20 08:45 U Cannabinoids Screen Positive ng/mL (Negative) A 09/23/20 08:45 U Marijuana (THC) Screen Detected (NotDetected) H 09/23/20 08:45 Urine Alcohol Negative mg/dL (Negative) 09/23/20 08:45 09/29/20 10:32 09/24/20 11:21 IDENTIFYING DATA: Patient is a 40-year-old male who currently lives with his mother and brother in a house. He has no kids and is unmarried and is unemployed. HPI: Patient presented to the hospital as he was brought in by his mother on a petition for aggression and making threats of suicide and homicide. Patient apparently has not been taking his psychiatric medications at home including lithium and olanzapine. Patient's UDS was positive for marijuana. Patient's lithium level was 0.4. Patient was seen today by service writer in his room and agreeable to speak to service writer in the office. Patient states that he "couldn't take it anymore" and was fairly vague and concrete. He repeated "I don't know" to several questions about the circumstances of him coming to the hospital. He states that "my mother always gets her way". He has very poor insight into his condition and need for treatment. He was fairly tearful when talking about his medications and his mental health. He was difficult to comprehend. He claims that his mood is "okay" and has an incongruent affect. He denied everything on the petition. He had poor eye contact and was looking at the ground during most of the interview. He states his sleep has been fair and appetite is been fair. Patient denies any suicidal or homicidal ideations intent or plan. At this time patient denies any auditory or visual hallucinations. Patient denies any flight of ideas racing thoughts and increased in goal directed behavior. Patient admits to using cigarettes daily and marijuana. PAST PSYCHIATRIC HISTORY: Patient has a history of schizophrenia and int ellectual disability. Patient was on lithium and olanzapine and is currently being followed by a nurse practitioner at [facility]. Patient was last psychiatrically hospitalized in August 2019. Patient denies any history of suicide attempts in the past. PMH: Obesity ALLERGIES: as per EMR CHEMICAL DEPENDENCY HISTORY: as per HPI FAMILY PSYCHIATRIC/SUBSTANCE USE HISTORY: denies SOCIAL HISTORY: Patient was born and raised in [place], [place]. He claims that he dropped out of school in the ninth grade and then came back to complete his high school degree. He states that he is unemployed at this time. He denies any legal history. He claims that he lives with his brother and mother in a house.. MENTAL STATUS EXAM: General Appearance: Patient appears to be overweight, stated age is alert, directable, and vague/guarded. Patient appears to have poor hygiene and grooming. Poor eye contact Behavior: Patient is seated without any agitated behavior. tearful at times Speech: Patient's speech is difficult to comprehend. [place] Mood/Affect: Patient reports their mood is ok, affect is incongruent Suicidality/Homicidality: Patient denies having any homicidal ideation intent or plan. Denies any suicidal ideations intent or plan Perceptions: Patient denies any visual hallucinations and denies any auditory hallucinations Though content/process: [place], poverty of content. Thought endorsing any delusions. Memory and concentration: AOX1-2, fair attention span. Cannot spell "WORLD" backwards Judgment and insight: poor STRENGTHS/WEAKNESSES: strength is that patient is resilient. Weakness is that patient has poor judgment and is impulsive INTELLECT: average IMPRESSIONS: Schizophrenia Intellectual disability Cannabis use disorder Nicotine dependence PLAN: -Patient is admitted under voluntary status to MHU for stabilization of psychiatric symptoms and safety. Patient has signed adult voluntary form and medication consent and is placed in patient's chart. -Medications : Will start patient on paliperidone by mouth 3 mg daily at bedtime for mood stabilization/psychosis. Plan will be to transition patient onto a long-acting injection. Continue with lithium 600 mg daily at bedtime +300 mg daily for mood stabilization. -Ativan and Haldol PRN for agitation/aggression -Patient was informed of the risks, benefits and side effects of the medication and patient verbally consented to taking the medications. Patient signed med consent form and was placed in chart. -Internal Medicine consult to perform medical evaluation and physical. -NRT - nicotine patch -SW on board for discharge planning. Encourage patient to participate in groups to work on coping skills.
--- NOTE | 2020-09-29 10:39 | P.DS ---
Providers Date of admission: 09/23/20 12:48 Expected date of discharge: 09/29/20 Attending physician: Gil Greer MD Consults: 09/23/20 15:30 Consult Physician Routine Consulting Provider: Juancho Physician Consult Reason/Comments: New admission H & P Do you want consulting provider notified?: Yes Primary care physician: Howard Gross - Discharge Diagnosis(es) (1) Schizophrenia Current Visit: Yes Status: Acute Priority: High (2) Intellectual disability Current Visit: Yes Status: Acute Priority: Medium (3) Cannabis use disorder, mild, abuse Current Visit: Yes Status: Acute Priority: Medium (4) Nicotine dependence Current Visit: Yes Status: Acute Priority: Low Hospital Course: Admission HPI: Admission note was completed by sba underwriter " Patient is a 40-year-old male who currently lives with his mother and brother in a house. He has no kids and is unmarried and is unemployed. Patient presented to the hospital as he was brought in by his mother on a petition for aggression and making threats of suicide and homicide. Patient apparently has not been taking his psychiatric medications at home including lithium and olanzapine. Patient's UDS was positive for marijuana. Patient's lithium level was 0.4. Patient was seen today by sba underwriter in his room and agreeable to speak to sba underwriter in the office. Patient states that he "couldn't take it anymore" and was fairly vague and concrete. He repeated "I don't know" to several questions about the circumstances of him coming to the hospital. He states that "my mother always gets her way". He has very poor insight into his condition and need for treatment. He was fairly tearful when talking about his medications and his mental health. He was difficult to comprehend. He claims that his mood is "okay" and has an incongruent affect. He denied everything on the petition. He had poor eye contact and was looking at the ground during most of the interview. He states his sleep has been fair and appetite is been fair. Patient denies any suicidal or homicidal ideations intent or plan. At this time patient denies any auditory or visual hallucinations. Patient denies any flight of ideas racing thoughts and increased in goal directed behavior. Patient admits to using cigarettes daily and marijuana." Hospital course: Upon admission to the unit patient was initially constricted, psychotic. Patient was however directable and agreeable to commence treatment and signed adult voluntary form. Patient got along well with other patients on the unit and followed unit protocol. Patient was compliant with the medications and denied any side effects throughout hospital course. Patient was started on paliperidone by mouth which was switched from his home medication of Zyprexa. Patient was transitioned onto Invega Sustenna to insure compliance and given a loading dose of 234 mg IM on 09/27 and will be due for his next dose of 156 mg IM on 10/03 and due for his monthly maintenance injection on 10/24/20 of 117 mg IM. Patient was also restarted on his lithium 600 mg daily at bedtime +300 mg daily for mood stabilization. Patient's initial lithium level was 0.4 on admission and on day of discharge lithium level was 0.7. Patient spoke of his stressors and engaged in therapy both group and individual. Patient was also seen by medical team for history and physical exam. Throughout the course of the hospitalization patient gradually improved with regards to mood, anxiety, psychosis ,sleep and return back to his baseline level of functioning. On the day of discharge patient denied any suicidal or homicidal ideations intent or plan denied any auditory or visual hallucinations. Patient endorsed wanting to live for his health and family. The patient denied any access to guns or weapons. Patient denied any paranoia and did not endorse any delusions. Patient does not have a significant history of substance abuse however was counseled on abstaining from all substances including alcohol and marijuana. Patient was also counseled on the medications and need for regular compliance and was encouraged to follow-up with their outpatient appointment for mental health and also for primary care. Prior to discharge a family meeting will be arranged by vp digital marketing social media and crm to answer any questions and ensure safety upon discharge. Mental status exam: General Appearance: Patient appears to be overweight, stated age is alert, pleasant, and cooperative. Patient is in no acute distress and has improved hygiene and grooming Behavior: Patient is calmly seated without any agitated behavior. Speech: Patient's speech is fluent and nonpressured. Mood/Affect: Patient reports their mood is "good", affect is congruent and euthymic. Suicidality/Homicidality: Patient denies having any suicidal or homicidal ideation intent or plan. Perceptions: Patient denies any auditory or visual hallucinations. Though content/process: There is no evidence of any delusional thought content and thought process is linear and goal-directed. [place] Memory and concentration: AOX3, grossly intact for the purposes of this session. Can spell "WORLD" backwards correctly. Judgment and insight: chronically poor, however has improved with guarded prognosis Impression: Schizophrenia Intellectual disability Cannabis use disorder Nicotine dependence Plan: -Continue with discharge today as patient has improved and stabilized psychiatrically and is not currently an imminent threat to himself and/or others. Patient will remain at chronically elevated risk for harm to self and/or others due to his chronically poor insight -Continue medications: Patient was discontinued off of paliperidone by mouth and transitioned onto Invega Sustenna to insure compliance and given a loading dose of 234 mg IM on 09/27 and will be due for his next dose of 156 mg IM on 10/03 and due for his monthly maintenance injection on 10/24/20 of 117 mg IM. Continue with lithium 600 mg daily at bedtime +300 mg daily for mood stabilization. -Patient was counseled on the need for medication compliance and appropriate follow-up at mental health and also primary care for medical issues. Patient verbalized understanding and agreed. -Social work to arrange for and conduct family meeting to ensure safety upon discharge and answer any questions/concerns. Social work also to arrange for patients follow up appointments with [facility] for psychiatric care along with follow up with primary care provider. -Patient counseled on abstaining from recreational drugs and marijuana and alcohol. Was informed/educated on the adverse effects on their physical and mental health. Patient verbally agreed and understood. -Patient was instructed to return to the hospital or seek immediate medical care if their psychiatric or medical symptoms do worsen or reoccur. Allergies Allergy/AdvReac Type Severity Reaction Status Date / Time No Known Allergies Allergy Verified 09/23/20 09:19 Laboratory Results WBC 8.3 k/uL (3.8-10.6) 09/29/20 06:36 RBC 5.00 m/uL (4.30-5.90) 09/29/20 06:36 Hgb 15.8 gm/dL (13.0-17.5) 09/29/20 06:36 Hct 46.0 % (39.0-53.0) 09/29/20 06:36 MCV 92.0 fL (80.0-100.0) 09/29/20 06:36 MCH 31.5 pg (25.0-35.0) 09/29/20 06:36 MCHC 34.3 g/dL (31.0-37.0) 09/29/20 06:36 RDW 12.4 % (11.5-15.5) 09/29/20 06:36 Plt Count 168 k/uL (150-450) 09/29/20 06:36 MPV 7.6 09/29/20 06:36 Neutrophils % 61 % 09/29/20 06:36 Lymphocytes % 30 % 09/29/20 06:36 Monocytes % 6 % 09/29/20 06:36 Eosinophils % 0 % 09/29/20 06:36 Basophils % 0 % 09/29/20 06:36 Neutrophils # 5.1 k/uL (1.3-7.7) 09/29/20 06:36 Lymphocytes # 2.5 k/uL (1.0-4.8) 09/29/20 06:36 Monocytes # 0.5 k/uL (0-1.0) 09/29/20 06:36 Eosinophils # 0.0 k/uL (0-0.7) 09/29/20 06:36 Basophils # 0.0 k/uL (0-0.2) 09/29/20 06:36 Sodium 140 mmol/L (137-145) 09/29/20 06:36 Potassium 4.5 mmol/L (3.5-5.1) 09/29/20 06:36 Chloride 109 mmol/L (98-107) H 09/29/20 06:36 Carbon Dioxide 23 mmol/L (22-30) 09/29/20 06:36 Anion Gap 8 mmol/L 09/29/20 06:36 BUN 17 mg/dL (9-20) 09/29/20 06:36 Creatinine 0.90 mg/dL (0.66-1.25) 09/29/20 06:36 Est GFR (CKD-EPI)AfAm >90 (>60 ml/min/1.73 sqM) 09/29/20 06:36 Est GFR (CKD-EPI)NonAf >90 (>60 ml/min/1.73 sqM) 09/29/20 06:36 Glucose 103 mg/dL (74-99) H 09/29/20 06:[address] Glu mg/dL 91 09/23/20 09:18 Hemoglobin A1c 4.8 % (4.0-6.0) 09/23/20 09:18 Calcium 10.0 mg/dL (8.4-10.2) 09/29/20 06:36 Total Bilirubin 0.7 mg/dL (0.2-1.3) 09/29/20 06:36 AST 31 U/L (17-59) 09/29/20 06:36 ALT 27 U/L (4-49) 09/29/20 06:36 Alkaline Phosphatase 73 U/L (38-126) 09/29/20 06:36 Total Protein 6.9 g/dL (6.3-8.2) 09/29/20 06:36 Albumin 4.5 g/dL (3.5-5.0) 09/29/20 06:36 Triglycerides 92.0 mg/dL (0.0-149.0) 09/23/20 09:18 Cholesterol 168 mg/dL (0-200) 09/23/20 09:18 LDL Cholesterol, Calc 117.6 mg/dL (0.0-131.0) 09/23/20 09:18 VLDL Cholesterol, Calc 18.40 mg/dL (5.00-40.00) 09/23/20 09:18 HDL Cholesterol 32.0 mg/dL (40.0-60.0) L 09/23/20 09:18 Cholesterol/HDL Ratio 5.25 09/23/20 09:18 TSH 1.670 mIU/L (0.465-4.680) 09/29/20 06:36 Urine Opiates Screen Negative ng/mL (Negative) 09/23/20 08:45 Urine Opiates Screen Not Detected (NotDetected) 09/23/20 08:45 Ur Oxycodone Screen Not Detected (NotDetected) 09/23/20 08:45 Urine Methadone Screen Negative ng/mL (Negative) 09/23/20 08:45 Urine Methadone Screen Not Detected (NotDetected) 09/23/20 08:45 Ur Propoxyphene Screen Negative ng/mL (Negative) 09/23/20 08:45 Ur Propoxyphene Screen Not Detected (NotDetected) 09/23/20 08:45 Ur Barbiturates Screen Not Detected (NotDetected) 09/23/20 08:45 Urine Barbiturates Negative ng/mL (Negative) 09/23/20 08:45 U Tricyclic Antidepress Not Detected (NotDetected) 09/23/20 08:45 Ur Phencyclidine Scrn Negative ng/mL (Negative) 09/23/20 08:45 Ur Phencyclidine Scrn Not Detected (NotDetected) 09/23/20 08:45 Ur Amphetamine Screen Negative ng/mL (Negative) 09/23/20 08:45 Ur Amphetamines Screen Not Detected (NotDetected) 09/23/20 08:45 U Methamphetamines Scrn Not Detected (NotDetected) 09/23/20 08:45 U Benzodiazepines Scrn Negative ng/mL (Negative) 09/23/20 08:45 U Benzodiazepines Scrn Not Detected (NotDetected) 09/23/20 08:45 [place] 0.7 mmol/L 09/29/20 06:36 Urine Cocaine Screen Negative ng/mL (Negative) 09/23/20 08:45 Urine Cocaine Screen Not Detected (NotDetected) 09/23/20 08:45 U Cannabinoids Screen Positive ng/mL (Negative) A 09/23/20 08:45 U Marijuana (THC) Screen Detected (NotDetected) H 09/23/20 08:45 Urine Alcohol Negative mg/dL (Negative) 09/23/20 08:45 Vital Signs Temp 96.4 F L 09/29/20 06:47 Pulse 82 09/29/20 06:47 Resp 18 09/29/20 06:47 BP 121/64 09/29/20 06:47 Pulse Ox 97 09/23/20 13:22 Intake & Output 09/28/20 09/29/20 09/29/20 18:59 06:59 18:59 Weight 110.6 kg Patient Condition at Discharge: Stable Plan - Discharge Summary New Discharge Prescriptions: New Paliperidone IM [Invega Sustenna] 156 mg IM ONCE #1 syr Paliperidone Palmitate [Invega Sustenna] 117 mg IM QMONTHLY #1 syr [place] Carbonate 300 mg PO DAILY 30 Days cap Ipratropium-Albuterol Nebulize [Duoneb 0.5 mg-3 mg/3 ml Soln] 3 ml INHALATION RT-QID PRN #1 ml PRN Reason: Shortness Of Breath Or Wheezing Nicotine 14Mg/24Hr Patch [Habitrol] 1 patch TRANSDERM DAILY 14 Days patch [place] Carbonate 600 mg PO HS 30 Days cap Discontinued [place] Carbonate 300 mg PO DAILY [place] Carbonate 600 mg PO HS OLANZapine [OLANZapine Odt] 20 mg PO HS Discharge Medication List Ipratropium-Albuterol Nebulize [Duoneb 0.5 mg-3 mg/3 ml Soln] 3 ml INHALATION RT-QID PRN #1 ml 09/29/20 [Rx] [place] Carbonate 300 mg PO DAILY 30 Days cap 09/29/20 [Rx] [place] Carbonate 600 mg PO HS 30 Days cap 09/29/20 [Rx] Nicotine 14Mg/24Hr Patch [Habitrol] 1 patch TRANSDERM DAILY 14 Days patch 09/29/20 [Rx] Paliperidone IM [Invega Sustenna] 156 mg IM ONCE #1 syr 09/29/20 [Rx] Paliperidone Palmitate [Invega Sustenna] 117 mg IM QMONTHLY #1 syr 09/29/20 [Rx] Follow up Appointment(s)/Referral(s): [facility] [Outside] - 10/02/20 10:30 am (10-02-20 @ 10:30 with Denisse Crow at [facility] 10-07-20 @ 10:00 with JANET Fox at [facility] ) Howard Sellers DO [Primary Care Provider] - 1-2 days Patient Instructions/Handouts: Psychotic Disorder (DC) Activity/Diet/Wound Care/Special Instructions: Activity and diet as tolerated. Avoid the use of street drugs and alcohol. Take all medications as prescribed. When you are in need of refills on your medications please contact your medical provider and/or outpatient psychiatrist to have this done. Please go to scheduled outpatient appointment for aftercare treatment. If symptoms return or become worse, call the crisis line at and/or go to the nearest emergency room for evaluation. Discharge Disposition: HOME SELF-CARE
== END 2020-09-29 12:26 | disposition home or self-care (01) | DRG 885 ==
LOC: EC 08:20 → 3MHU 12:48
PROVIDERS: ADMIT Psychiatry & Neurology Psychiatry; ATTEND Psychiatry & Neurology Psychiatry
DX: F25.9 Schizoaffective disorder, unspecified (principal); R45.851 Suicidal ideations; F12.10 Cannabis abuse, uncomplicated; F17.210 Nicotine dependence, cigarettes, uncomplicated; F41.9 Anxiety disorder, unspecified; F79 Unspecified intellectual disabilities; R45.850 Homicidal ideations
CPT/HCPCS: 36415; 80053; 80061; 80178; 80306; 82075; 83036; 84443; 85025; 99285